=== PATIENT | female | born 1995 | race Caucasian/White ===

== ENCOUNTER → 2021-06-29 11:30 | Outpatient (CLI) | payer OTHER, SELFPAY ==
[2021-06-29 13:07] LABS: Free Thyroxine Index 3.3 ug/dL (5.93-13.13); T4 (Thyroxine) 11.5 ug/dl (5.53-11.0); Triiodothryronine (T3) Uptake 29 % (23.5-40.5)
[2021-06-29 13:21] LABS: Thyroid Stimulating Hormone 2.15 uIU/mL (0.465-4.68)
[2021-06-30 12:27] LABS: Estradiol 41.7 pg/mL (.); FSH 7.2 mIU/mL (.); LH 16.6 mIU/mL (.)
== END ==
PROVIDERS: Visit Provider Nurse Practitioner Obstetrics & Gynecology
DX: N92.6 Irregular menstruation, unspecified (principal); R53.82 Chronic fatigue, unspecified
CPT/HCPCS: 36415; 82670; 83001; 83002; 84436; 84443; 84479

== ENCOUNTER 2022-04-26 14:46 | Emergency (ER) | payer OTHER, SELFPAY ==
[2022-04-26 15:00] VITALS: BP 140/101; PULSE 114; RESP 18; TEMP 37.2; O2SAT 98; BMI 36.0
[2022-04-26 15:32] LABS: Strep Scrn Group A (Rapid) Negative (Negative)
--- NOTE | 2022-04-26 15:34 | HMH.EDUTC ---
[facility] [place] Clinical Impression: Otitis media Qualifiers: Otitis media type: unspecified Laterality: left Qualified Code(s): H66.92 - Otitis media, unspecified, left ear Disposition: Home, Self-Care Condition on Discharge: Good Instructions: DI for Cough -- Adult, Cough, DI for Sinusitis, Middle Ear Infection, Sore Throat Additional Instructions: *Monitor Temp, Over the counter Motrin or Tylenol as directed/as needed Tylenol every 4 hours and Motrin every 6 hours (as long as your family doctor has told you that you can take it) for fever or pain. and straight to ER if unable to lower temp less than 101.0 after medication given *Warm salt water gargles may help to soothe the throat *Throat Lozenges *Warm fluids like tea with honey may help to soothe the throat *Sleep elevated *Humidifier/Vaporizer Your throat swab was sent for culture. Those results are typically sent to your primary care. Be sure to follow up in 2-3 days with your family doctor/primary care physician if no improvement so they can review those result and treat if necessary. If you don?t have a primary care doctor, I recommend you get one but in the mean time, you will have to return to a walk in clinic Follow up IMMEDIATELY for new or worsening symptoms or no Noticeable improvement over the next 48-72 hours. 911 for difficulty breathing or swallowing Prescriptions: Benzonatate [Benzonatate 100mg cap] 100 mg PO Q8HP PRN #15 cap PRN Reason: Cough Transmission Status: Pending to [facility] methylPREDNISolone [Medrol 4mg tab] 4 mg PO DIRECTED #21 tab Transmission Status: Pending to [facility] Cefdinir [Omnicef 300mg Capsule] 300 mg PO BID #20 cap Transmission Status: Pending to [facility] Referrals: Provider,Referral, [Primary Care Provider] - As needed Time of Disposition: 15:59 Medical Decision Making - Roly Inquiry Pt receiving controlled substance: No Roly was queried for this patient: No Vital Signs: 04/26/22 15:00 Temperature 99.0 F Temperature Source Oral Pulse Rate [Right Brachial] 114 H Respiratory Rate 18 Blood Pressure [Right Arm] 140/101 H Blood Pressure Mean [Right Arm] 114 Blood Pressure Source [Right Arm] Automatic Cuff Blood Pressure Position [Right Arm] Sitting 02 Sat by Pulse Oximetry 98 Oxygen Delivery Method Room Air - Lab Data Lab results reviewed: Yes: I reviewed the patient's lab results. Lab Results 04/26/22 15:13: Group A Strep Rapid Negative 04/26/22 15:34: [facility]st Clinic Negative Orders (Tests/Meds): ORDERS Category Date Time Status Strep Screen Confirmation Stat Micro 04/26/22 15:13 [place] [facility] [place] - General Stated complaint: sore throat, h/a, bilateral ear ache Time Seen by Provider: 04/26/22 15:34 Mode of Arrival: Ambulatory Source of Information: Patient Limitations: No Limitations Description of Symptoms (Recalled from Triage Doc. by RN): PATIENT C/O EAR PAIN SINCE MONDAY AND SORE THROAT, HEADACHE AND CONGESTION SINCE YESTERDAY HEENT Symptoms (Recalled from RN notes): Yes Resp Symptoms (Recalled from RN notes): No Skin Symptoms (Recalled from RN notes): No MS Symptoms (Recalled from RN notes): No Functional Status (Recalled from RN notes): WNL - History of Present Illness Provider Complaint: Patient states that she has been having pain in both ears worse in her right ear, sore throat, and sinus pressure States that today she was feeling worse and her cough was more bothersome so she came in - Related Data Previous Rx's Medication Instructions Recorded medroxyprogesterone 10 mg tablet 10 mg PO DAILY 10 Days #10 tab 09/06/21 clomiphene citrate 50 mg tablet 50 mg PO DAILY 5 Days #5 tab 11/09/21 Benzonatate [Benzonatate 100mg 100 mg PO Q8HP PRN #15 cap 04/26/22 cap] Cefdinir [Omnicef 300mg Capsule] 300 mg PO BID #20 cap 04/26/22 methylPREDNISolone [Medrol 4mg 4 mg PO DIRECTED #21 tab 04/26/22 tab] Lai
[2022-04-26 15:35] LABS: UTC Pregnancy Test, Urine Negative (Negative)
[2022-04-26 15:57] VITALS: BP 140/101; PULSE 114; RESP 18; TEMP 37.2; O2SAT 98
== END 2022-04-26 16:05 | disposition home or self-care (01) ==
PROVIDERS: Emergency Provider Nurse Practitioner
DX: H66.92 Otitis media, unspecified, left ear (principal)
CPT/HCPCS: 81025; 87430; 99212; G0463

== ENCOUNTER 2022-12-08 16:02 | Emergency (ER) | payer OTHER, SELFPAY ==
[2022-12-08 16:28] VITALS: BP 116/87; PULSE 125; RESP 16; TEMP 36.7; O2SAT 98; BMI 34.0
--- NOTE | 2022-12-08 17:27 | EXP.UTC ---
Discharge Plan Disposition Patient Disposition: Home, Self-Care Condition: Good Prescriptions Prescriptions: New ondansetron 4 mg Tablet,Disintegrating 4 mg PO Q8H PRN (Reason: Nausea) Qty: 20 0RF No Action medroxyprogesterone [Provera] 10 mg tablet 10 mg PO DAILY 10 Days Qty: 10 6RF clomiphene citrate 50 mg tablet 50 mg PO DAILY 5 Days Qty: 5 0RF Referrals Follow up/Referrals: Provider,Referral, MD [Primary Care Provider] - See instructions Activity Restrictions/Add. Instructions Additional Instructions/Restrictions: Drink plenty of fluids. Take tylenol or ibuprofen for pain or fever. Take the medications as directed. Follow up with your regular doctor. GO TO THE ER FOR ANY WORSENING SYMPTOMS Clinical Impressions Clinical Impression: Gastroenteritis Stand Alone Forms Stand Alone Forms: Work/School Release Instructions Patient Instructions: DI for Viral Gastroenteritis -- Adult, Ondansetron, Promethazine Discharge ED Provider: J[facility] General Stated complaint: V&D Body aches Mode of Arrival: Ambulatory Limitations: No Limitations Time Seen by Provider: 12/08/22 17:27 Description of Symptoms (Recalled from Triage Doc. by RN): . History of Present Illness Provider Complaint: She comes in with c/o nausea, vomitting, diarrhea and body aches that began this am around 0500. She denies abdominal pain. She has been exposed to someone with a stomach virus. Related Data Previous Rx's Medication Instructions Recorded medroxyprogesterone 10 mg tablet 10 mg PO DAILY 10 days #10 tabs 09/06/21 (Provera) clomiphene citrate 50 mg tablet 50 mg PO DAILY 5 days #5 tabs 11/09/21 ondansetron 4 mg disintegrating 4 mg PO Q8H PRN Nausea #20 tabs 12/08/22 tablet Allergies Allergy/AdvReac Type Severity Reaction Status Date / Time No Known Allergies Allergy Verified 12/08/22 17:32 [facility] Disclaimer: The information contained in this section may have been updated after the patient was seen, as this information can be updated by other users. Social History Smoking Status: Never smoker alcohol intake: never substance use type: denies use current occupational status: other Travel in the last 8 weeks: None ROS Obtained: Yes All systems reviewed & no additional complaints except as documented Constitutional Constitutional: Denies chills, Denies fever(s) and Reports poor appetite ENT Ears, Nose, Mouth, and Throat: Denies dizziness and Denies sore throat Cardiovascular Cardiovascular: Denies dyspnea Respiratory Respiratory: Denies chest congestion, Denies cough and Denies dyspnea Gastrointestinal Gastrointestingal: Reports as per HPI; Denies abdominal pain Genitourinary Female Genitourinary: Denies difficulty voiding, Denies dysuria, Denies hematuria, Denies urinary frequency, Denies urinary incontinence, Denies urinary hesitancy and Denies urinary urgency Musculoskeletal Musculoskeletal: Denies arthralgias Integumentary/Breasts Skin/Breast: Denies rash Neurologic Neurologic: Denies dizziness Physical Exam General General appearance: alert and in no apparent distress Head Head exam: atraumatic and normocephalic Eye Eye exam: Present normal appearance, PERRL and EOMI ENT ENT exam: Present normal exam, normal oropharynx, mucous membranes moist, TM's normal bilaterally and normal external ear exam Neck Neck exam: Present normal inspection, full ROM and trachea midline; Absent tenderness, meningismus or lymphadenopathy Chest Chest inspection: Present normal inspection and symmetric chest wall rise; Absent tenderness, rash or abscess Respiratory Respiratory exam: Present normal lung sounds bilaterally; Absent respiratory distress, wheezes or stridor Cardiovascular Cardiovascular exam: Present regular rate and normal rhythm; Absent irregular rhythm, systolic murmur, diastolic murmur or JVD Abdominal Ex
[2022-12-08 17:29] VITALS: BP 116/87; PULSE 125; RESP 16; TEMP 36.7; O2SAT 98; BMI 33.7
[2022-12-08 17:46] LABS: UTC Influenza A Antigen Negative (Negative); UTC Influenza B Antigen Negative (Negative)
[2022-12-08 17:47] LABS: UTC Strep Screen (Rapid) Negative (Negative)
[2022-12-08 18:45] VITALS: BP 116/87; PULSE 125; RESP 16; TEMP 36.7; O2SAT 98
== END 2022-12-08 18:45 | disposition home or self-care (01) ==
LOC: ER 16:20 → UTC 16:21
PROVIDERS: Emergency Provider Nurse Practitioner Family
DX: K52.9 Noninfective gastroenteritis and colitis, unspecified (principal)
CPT/HCPCS: 87804; 87880; 96372; 99212; 99213; G0463